=== PATIENT | male | born 1995 | race Caucasian/White ===

== ENCOUNTER 2018-10-07 23:45 | Emergency (ER) | payer BC ==
[~2018-10-07] VITALS: Ht 177.8 cm; Wt 90.7 kg
[~2018-10-07 23:45] MED LIST: UNOBMED
[2018-10-07] MEDS ORDERED: GABAPENTIN600 MG ORAL (23:52)
[2018-10-07] MEDS ORDERED: REMERON15 M1 ORAL (23:52)
--- NOTE | 2018-10-08 | NUR ---
ED Nurse Note: Pt arrived ER [facility]. EMT report someone saw Pt SP seizure episode then call 911. While Pt transfer to the bed, Pt suddenly had seizure attack. Ativan 2mg IVP as ERMD order as soon, suction Pt at bedside. Pt had seizure about 2~3 minutes then stop. Pt awake and HR 128, Pt on 2L N/C and O2 sat 100%. Continue monitor Pt closely.
[2018-10-08] MEDS ORDERED: LORazepam Inj 2mg/ml 1ml ONE (00:08)
--- NOTE | 2018-10-08 00:10 | NUR ---
ED Nurse Note: Blood sample sent to Lab. Found Pt bleed from mouth, assess Pt then found Pt bite his L side tongue. Clean with NS, compress with dressing and bleeding stop. Inform ERMD condition.
[2018-10-08] MEDS ORDERED: LORazepam Inj 2mg/ml 1ml IV ONE ×2 (00:15→01:00)
[2018-10-08 00:20] LABS: BASOPHILS % (AUTO) 1.4 % (0.0-2.0); EOSINOPHILS % (AUTO) 1.3 % (0.0-3.0); HEMATOCRIT 42.5 % (42.0-52.0); HEMOGLOBIN 14.9 G/DL (14.2-18.0); LYMPHOCYTES % (AUTO) 30.4 % (20.0-45.0); MEAN CORPUSCULAR VOLUME 86 FL (80-99); MONOCYTES % (AUTO) 8.9 % (1.0-10.0); PLATELET COUNT 277 K/UL (150-450); RED BLOOD COUNT 4.94 M/UL (4.70-6.10); RED CELL DISTRIBUTION WIDTH 11.2 % (11.6-14.8); WHITE BLOOD COUNT 11.4 K/UL (4.8-10.8)
[2018-10-08 00:30] LABS: ANION GAP 16 mmol/L (5-15); BLOOD UREA NITROGEN 12 mg/dL (7-18); CALCIUM 8.8 MG/DL (8.5-10.1); CARBON DIOXIDE 23 MMOL/L (21-32); CHLORIDE 102 MMOL/L (98-107); CREATININE 1.5 MG/DL (0.55-1.30); POTASSIUM 3.5 MMOL/L (3.5-5.1); SODIUM 141 MMOL/L (136-145)
[2018-10-08 00:34] LABS: ALANINE AMINOTRANSFERASE 171 U/L (12-78); ALBUMIN 3.9 G/DL (3.4-5.0); ALBUMIN/GLOBULIN RATIO 1.1 (1.0-2.7); ALKALINE PHOSPHATASE 91 U/L (46-116); ASPARTATE AMINO TRANSFERASE 82 U/L (15-37); BILIRUBIN,TOTAL 0.3 MG/DL (0.2-1.0)
[2018-10-08 01:11] VITALS: BP 136/70
--- NOTE | 2018-10-08 02:00 | NUR ---
ED Nurse Note: Pt still c/o nausea and vomiting, inform ERMD for action.
[2018-10-08] MEDS ORDERED: Metoclopramide 10mg/2ml Inj IVP ONE (02:15)
[2018-10-08] MEDS ORDERED: Ketorolac 30mg Inj IV ONE (02:15)
[2018-10-08 02:21] VITALS: BP 127/81
--- NOTE | 2018-10-08 03:34 | Emergency Room Report ---
History of Present Illness General Chief Complaint: Seizure Source: Patient Present Illness HPI 23-year-old male presents ED for evaluation. Status post seizure from recuperative care. Witnessed. No head injury. No tongue trauma. No incontinence. Patient awake alert oriented 3 upon arrival. Patient states that he is currently being treated for drug addiction. Denies any drug use today. States he's had seizures twice previously. Is currently not on medication for seizures. Denies headache. Denies fevers or chills. Denies any neck stiffness. No other aggravating relieving factors. Denies any other associated symptoms Allergies: Coded Allergies: No Known Allergies (Unverified , 09/27/18) Patient History Past Medical History: seizures Past Surgical History: none Pertinent Family History: none Social History: Reports: drug use; Denies: smoking, alcohol use Immunizations: UTD Reviewed Nursing Documentation: PMH: Agreed; PSxH: Agreed Nursing Documentation-PMH Past Medical History: No History, Except For Hx Seizures: Yes Review of Systems All Other Systems: negative except mentioned in HPI Physical Exam Vital Signs Date Time Temp Pulse Resp B/P (MAP) Pulse Ox O2 Delivery O2 Flow Rate FiO2 10/07/18 23:48 98.6 128 16 136/70 100 Room Air Sp02 EP Interpretation: reviewed, normal General Appearance: no apparent distress, alert, GCS 15, non-toxic Head: normocephalic, atraumatic Eyes: bilateral eye normal inspection, bilateral eye PERRL ENT: hearing grossly normal, normal pharynx, no angioedema, normal voice Neck: full range of motion, supple/symm/no masses Respiratory: chest non-tender, lungs clear, normal breath sounds, speaking full sentences Cardiovascular #1: regular rate, rhythm, no edema Cardiovascular #2: 2+ carotid (R), 2+ carotid (L), 2+ radial (R), 2+ radial (L) , 2+ dorsalis pedis (R), 2+ dorsalis pedis (L) Gastrointestinal: normal bowel sounds, non tender, soft, non-distended, no guarding, no rebound Rectal: deferred Genitourinary: normal inspection, no CVA tenderness Musculoskeletal: back normal, gait/station normal, normal range of motion, non- tender Neurologic: alert, oriented x3, responsive, motor strength/tone normal, sensory intact, speech normal Psychiatric: judgement/insight normal, memory normal, mood/affect normal, no suicidal/homicidal ideation, anxious Reflexes: 3+ bicep (R), 3+ bicep (L), 3+ tricep (R), 3+ tricep (L), 3+ knee (R) , 3+ knee (L) Skin: normal color, no rash, warm/dry, well hydrated Lymphatic: no adenopathy Medical Decision Making Diagnostic Impression: Primary Impression: Seizure disorder Additional Impression: Drug overdose Qualified Codes: T50.901A - Poisoning by unspecified drugs, medicaments and biological substances, accidental (unintentional), initial encounter ER Course Hospital Course 23-year-old M presents to ED status post seizure. h/o substance abuse Differential diagnosis includes- breakthrough seizure, alcohol abuse, noncompliance with medication Clinical course Patient placed on stretcher. Had one witnessed seizure upon arrival. Given Ativan. Initial history and physical I ordered labs, IV fluids Labs-electrolytes okay, no leukocytosis, hemoglobin/hematocrit stable. Utox + BZs Patient continues to have headache and vomiting. CT down. MRI ordered MRI Brain ok Patient allowed to rest. Awake alert oriented 3. Discussed findings with patient. Gave option for admission. Patient for her to be discharged. Is currently not taking seizure medications. Does not want to start medication at this time until he sees a PMD. States he has a PMD Initially patient was unclear which sober living facility he was residing at. Patient has been in multiple facilities here in [place]. Patient is safe for discharge upon acceptance to his sober living facility. SW will be contacted in AM to assist in placement if patient is unable to locate his sober facility Diagnosis - Seizure disorder, drug overdose stable and discharged to sober living. Followup with PMD. Return to ED if symptoms recur or worsen Labs Test 10/08/18 00:05 10/08/18 04:20 White Blood Count 11.4 K/UL (4.8-10.8) Red Blood Count 4.94 M/UL (4.70-6.10) Hemoglobin 14.9 G/DL (14.2-18.0) Hematocrit 42.5 % (42.0-52.0) Mean Corpuscular Volume 86 FL (80-99) Mean Corpuscular Hemoglobin 30.2 PG (27.0-31.0) Mean Corpuscular Hemoglobin Concent 35.2 G/DL (32.0-36.0) Red Cell Distribution Width 11.2 % (11.6-14.8) Platelet Count 277 K/UL (150-450) Mean Platelet Volume 6.3 FL (6.5-10.1) Neutrophils (%) (Auto) 58.0 % (45.0-75.0) Lymphocytes (%) (Auto) 30.4 % (20.0-45.0) Monocytes (%) (Auto) 8.9 % (1.0-10.0) Eosinophils (%) (Auto) 1.3 % (0.0-3.0) Basophils (%) (Auto) 1.4 % (0.0-2.0) Sodium Level 141 MMOL/L (136-145) Potassium Level 3.5 MMOL/L (3.5-5.1) Chloride Level 102 MMOL/L (98-107) Carbon Dioxide Level 23 MMOL/L (21-32) Anion Gap 16 mmol/L (5-15) Blood Urea Nitrogen 12 mg/dL (7-18) Creatinine 1.5 MG/DL (0.55-1.30) Estimat Glomerular Filtration Rate 57.5 mL/min (>60) Glucose Level 143 MG/DL (74-106) Calcium Level 8.8 MG/DL (8.5-10.1) Total Bilirubin 0.3 MG/DL (0.2-1.0) Aspartate Amino Transf (AST/SGOT) 82 U/L (15-37) Alanine Aminotransferase (ALT/SGPT) 171 U/L (12-78) Alkaline Phosphatase 91 U/L (46-116) Total Protein 7.5 G/DL (6.4-8.2) Albumin 3.9 G/DL (3.4-5.0) Globulin 3.6 g/dL Albumin/Globulin Ratio 1.1 (1.0-2.7) Salicylates Level 1.7 ug/mL (2.8-20) Acetaminophen Level < 2 MCG/ML (10-30) Serum Alcohol < 3 mg/dL Urine Opiates Screen Negative (NEGATIVE) Urine Barbiturates Screen Negative (NEGATIVE) Phencyclidine (PCP) Screen Negative (NEGATIVE) Urine Amphetamines Screen Negative (NEGATIVE) Urine Benzodiazepines Screen Positive (NEGATIVE) Urine Cocaine Screen Negative (NEGATIVE) Urine Marijuana (THC) Screen Negative (NEGATIVE) EKG Diagnostic Results Rate: tachycardiac Rhythm: NSR ST Segments: no acute changes ASA given to the pt in ED: No Rhythm Strip Diag. Results EP Interpretation: yes Rhythm: NSR, no PVC's, no ectopy CT/MRI/US Diagnostic Results CT/MRI/US Diagnostic Results : Imaging Test Ordered: MRI Brain Impression no acute process Last Vital Signs Date Time Temp Pulse Resp B/P (MAP) Pulse Ox O2 Delivery O2 Flow Rate FiO2 10/08/18 02:21 98.5 116 18 127/81 100 Room Air Status: improved Disposition: HOME, SELF-CARE Condition: Stable Referrals: NOT CHOSEN IPA/,REFERRING (PCP) Dale Lawler MD Oct 08, 2018 03:34
--- NOTE | 2018-10-08 03:36 | NUR ---
ED Nurse Note: Pt went to MRI.
--- NOTE | 2018-10-08 04:30 | NUR ---
ED Nurse Note: Urine sample sent to Lab.
--- NOTE | 2018-10-08 06:03 | NUR ---
Pt gave number for sober living [phone] ([place])
--- NOTE | 2018-10-08 06:29 | NUR ---
ED Nurse Note: Pt will needs replacement or looks for social science professor assist in AM.
--- NOTE | 2018-10-08 06:59 | NUR ---
HAND-OFF: Report given to Jen YEBOAH.
[2018-10-08 07:09] VITALS: BP 113/44
--- NOTE | 2018-10-08 07:10 | NUR ---
ED Nurse Note: received pt from EDILIA Garzon. Pt remains stable in [facility]. Per Dr. Malone, pt is ok to eat. Addendum: 10/08/18 at 0714 by [email or web address] ED Nurse Note: received pt from EDILIA Garzon. Pt remains stable in [facility]. Per Dr. Malone, pt is ok to eat. Breakfast is ordered. Waiting for social service director. Will follow up.
--- NOTE | 2018-10-08 07:30 | NUR ---
ED Nurse Note: breakfast tray was provided to patient.
[2018-10-08 08:59] VITALS: BP 102/42
--- NOTE | 2018-10-08 09:15 | NUR ---
ED Nurse Note: pt provided address to [facility] [address]. Spoke with Anil, chief transfer and pumphouse operator, and they said they will provide transportation for the patient. Patient made aware. Notified Dr. Malone that pt has placement.
--- NOTE | 2018-10-08 09:27 | Diagnostic Imaging Report ---
Indication: Seizure. Headache nausea and vomiting Technique: The head was imaged in a 1.5 Nina magnet. Sequences obtained include sagittal and axial T1 FLAIR, axial T2 fast spin echo with fat saturation, axial T2 FLAIR, diffusion and ADC map. Comparison: None Findings: The size, contour, and configuration of the sulci, ventricles, and basal cisterns appear normal. Wilkes-white differentiation is normal. There is no restricted diffusion. There is no mass effect, midline shift, edema, or hemorrhage. There are no abnormal extra-axial or intra-axial fluid collections. The corpus callosum is unremarkable. The brainstem and cerebellum are unremarkable. The sella is unremarkable. Bone marrow signal within the visualized osseous structures appears age appropriate and unremarkable otherwise. Impression: Negative MRI brain without contrast.
[2018-10-08 09:29] VITALS: BP 102/42
--- NOTE | 2018-10-08 09:32 | NUR ---
ED Nurse Note: Pt cleared DC by Dr. Malone. Pt is A/Ox4, VSS, DC instruction and prescriptions given, pt verbalized understanding. IV and ID wristband removed. All belongings given to pt. Pt ambulated out of ER with steady gait.
--- NOTE | 2018-10-10 13:03 | Cardiology Report ---
APPROVED REPORT EKG Measurement Heart [id number] Sinus tachycardia Otherwise normal ECG
== END 2018-10-08 09:35 | disposition home or self-care (01) ==
LOC: EDBD 23:45 → EDUNIT# 23:45 → EMR 10-08 00:19
DX: G40.909 Epilepsy, unspecified, not intractable, without status epilepticus (principal); T50.901A Poisoning by unspecified drugs, medicaments and biological substances, accidental (unintentional), initial encounter
CPT/HCPCS: 36415; 70551; 80053; 80307; 82962; 85025; 93005; 96361; 96374; 96375; 96376; 99284; G0480; J1885; J2405; J2765; 80329

== ENCOUNTER 2019-03-01 15:08 | Inpatient (IN) | payer BC ==
[~2019-03-01] VITALS: Ht 177.8 cm; Wt 95.3 kg
[~2019-03-01 15:08] MED LIST changes: +GABAPENTIN600 MG ORAL; +REMERON15 M1 ORAL
[2019-03-01 15:13] VITALS: BP 103/63
--- NOTE | 2019-03-01 15:15 | NUR ---
ED Nurse Note: Lefty walked into ED c/o 06/09 headache that started earlier this morning, patient states that does have a history of migraines and frequently gets them but today was much worse. at time of triage, patient's blood pressure was 85/53 however at time of putting on a monitor, patients blood pressure was 103/60. patient reports of taking heroin 2 days ago and taking suboxone earlier today.
[2019-03-01] MEDS ORDERED: KEPPRA500 M4 ORAL (15:21)
[2019-03-01] MEDS ORDERED: SUMAtriptan 6mg/0.5ml Inj SUBQ STA (15:38)
--- NOTE | 2019-03-01 15:46 | Emergency Room Report ---
History of Present Illness General Chief Complaint: Headache Source: Patient Present Illness HPI The patient presents with a chief complaint of a headache. He felt okay this morning but then started to get uncontrolled vomiting with a headache that is now 5/10. He has a history of migraines in the past. It feels like his migraine. He does not feel well mainly because of the nausea. Earlier when this began he had chest pain. The chest pain is improved. Seem to be worsened by vomiting. The patient took Suboxone earlier today. The patient did IV heroin 2 days ago. He uses frequently but not daily. He used a half a gram at that time. He is not sure if he is withdrawing somewhat. Usually his withdrawal is controlled by the Suboxone. Patient had chills earlier but no documented fever. He denies vomiting blood. He denies hepatitis C and HIV. The patient states he has access to Narcan. Was evaluated in October for seizure. He felt it was related to withdrawal. No medications were started at that time. 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 Nursing Documentation: PMH: Agreed; PSxH: Agreed Nursing Documentation-PMH Hx Seizures: Yes Review of Systems All Other Systems: negative except mentioned in HPI Physical Exam Vital Signs Date Time Temp Pulse Resp B/P (MAP) Pulse Ox O2 Delivery O2 Flow Rate FiO2 03/01/19 15:13 99.3 130 22 85/55 (65) 100 Room Air Sp02 EP Interpretation: reviewed, normal General Appearance: well appearing, no apparent distress, GCS 15 Head: normocephalic, atraumatic Eyes: bilateral eye normal inspection, bilateral eye PERRL ENT: moist mucus membranes Neck: supple Respiratory: lungs clear, normal breath sounds Cardiovascular #1: tachycardia Cardiovascular #2: 2+ radial (R) Gastrointestinal: normal inspection, normal bowel sounds, non tender, no mass, non-distended Musculoskeletal: back normal, gait/station normal, normal range of motion Neurologic: alert, oriented x3, field test engineer III-XII nml as tested, motor strength/tone normal, DTRs symmetric, sensory intact, speech normal Psychiatric: mood/affect normal Skin: other - Neck loo bilateral Medical Decision Making Diagnostic Impression: Primary Impression: Headache Qualified Codes: R51 - Headache Additional Impressions: Nausea & vomiting Qualified Codes: R11.2 - Nausea with vomiting, unspecified Tachycardia IV drug abuse Left shift Transient hypotension ER Course The patient presents with headache and uncontrolled vomiting. Differential includes migraine, heroin withdrawal, dehydration, viral syndrome and other headache variant, gastroenteritis amongst others. He is tachycardic at this time. Evaluation will be with EKG and labs. The patient will be treated with subcutaneous Imitrex and IV Zofran. He will also receive IV hydration. Complicated case. EKG NSR. Labs with normal white count however there is a left shift with bands present. Improved with tx. Still with nausea and feels dehydrated. Tachycardia persists 18:40. NS bolus, Reglan and Benadryl. Intermittent hypotension. C reactive protein elevated. Concern over SBE. BC ordered, lactic acid and antibiotics ordered. Admit tele. 19:28 Other considerations include withdrawal, sepsis, dehydration. However, with left shift, concern for occult infection. Lactate normal. Discussed with Dr. Farnsworth. Laboratory Tests Test 03/01/19 15:45 03/01/19 16:15 White Blood Count 5.4 K/UL (4.8-10.8) Red Blood Count 4.58 M/UL (4.70-6.10) L Hemoglobin 13.8 G/DL (14.2-18.0) L Hematocrit 40.4 % (42.0-52.0) L Mean Corpuscular Volume 88 FL (80-99) Mean Corpuscular Hemoglobin 30.1 PG (27.0-31.0) Mean Corpuscular Hemoglobin Concent 34.1 G/DL (32.0-36.0) Red Cell Distribution Width 10.9 % (11.6-14.8) L Platelet Count 221 K/UL (150-450) Mean Platelet Volume 6.0 FL (6.5-10.1) L Neutrophils (%) (Auto) % (45.0-75.0) Lymphocytes (%) (Auto) % (20.0-45.0) Monocytes (%) (Auto) % (1.0-10.0) Eosinophils (%) (Auto) % (0.0-3.0) Basophils (%) (Auto) % (0.0-2.0) Differential Total Cells Counted 100 Neutrophils % (Manual) 84 % (45-75) H Lymphocytes % (Manual) 3 % (20-45) L Monocytes % (Manual) 3 % (1-10) Eosinophils % (Manual) 0 % (0-3) Basophils % (Manual) 1 % (0-2) Band Neutrophils 9 % (0-8) H Platelet Estimate Adequate Platelet Morphology Normal Red Blood Cell Morphology Normal Sodium Level 141 MMOL/L (136-145) Potassium Level 3.9 MMOL/L (3.5-5.1) Chloride Level 103 MMOL/L (98-107) Carbon Dioxide Level 25 MMOL/L (21-32) Anion Gap 13 mmol/L (5-15) Blood Urea Nitrogen 16 mg/dL (7-18) Creatinine 1.2 MG/DL (0.55-1.30) Estimate Glomerular Filtration Rate > 60 mL/min (>60) Glucose Level 104 MG/DL (74-106) Calcium Level 9.6 MG/DL (8.5-10.1) Total Bilirubin 1.4 MG/DL (0.2-1.0) H Direct Bilirubin 0.4 MG/DL (0.0-0.3) H Aspartate Amino Transferase (AST) 28 U/L (15-37) Alanine Aminotransferase (ALT) 37 U/L (12-78) Alkaline Phosphatase 81 U/L (46-116) Troponin I 0.000 ng/mL (0.000-0.056) Total Protein 7.4 G/DL (6.4-8.2) Albumin 4.3 G/DL (3.4-5.0) Globulin 3.1 g/dL Albumin/Globulin Ratio 1.4 (1.0-2.7) Salicylates Level 1.5 ug/mL (2.8-20) L Acetaminophen Level < 2 MCG/ML (10-30) L Serum Alcohol < 3 mg/dL Urine Opiates Screen Positive (NEGATIVE) H Urine Barbiturates Screen Negative (NEGATIVE) Phencyclidine (PCP) Screen Negative (NEGATIVE) Urine Amphetamines Screen Negative (NEGATIVE) Urine Benzodiazepines Screen Negative (NEGATIVE) Urine Cocaine Screen Negative (NEGATIVE) Urine Marijuana (THC) Screen Positive (NEGATIVE) H EKG Diagnostic Results Rate: tachycardiac Rhythm: NSR ST Segments: no acute changes Rhythm Strip Diag. Results Rhythm: no PVC's, no ectopy, other - Sinus tachycardia Chest X-Ray Diagnostic Results Chest X-Ray Diagnostic Results : Chest X-Ray Ordered: Yes # of Views/Limited/Complete: 1 View Indication: Other EP Interpretation: Yes Interpretation: no consolidation, no effusion, no pneumothorax Impression: No acute disease Electronically Signed by: Electronically signed by Davidson Palacios MD Last Vital Signs Date Time Temp Pulse Resp B/P (MAP) Pulse Ox O2 Delivery O2 Flow Rate FiO2 03/02/19 00:00 91 03/02/19 00:00 99.0 20 108/62 (77) 96 03/01/19 21:52 Room Air Status: improved Disposition: ADMITTED INPATIENT Condition: Serious Davidson Palacios MD Mar 01, 2019 15:46
[2019-03-01 15:58] LABS: HEMATOCRIT 40.4 % (42.0-52.0); HEMOGLOBIN 13.8 G/DL (14.2-18.0); MEAN CORPUSCULAR VOLUME 88 FL (80-99); PLATELET COUNT 221 K/UL (150-450); RED BLOOD COUNT 4.58 M/UL (4.70-6.10); RED CELL DISTRIBUTION WIDTH 10.9 % (11.6-14.8); WHITE BLOOD COUNT 5.4 K/UL (4.8-10.8)
[2019-03-01 16:10] LABS: ANION GAP 13 mmol/L (5-15); BLOOD UREA NITROGEN 16 mg/dL (7-18); CALCIUM 9.6 MG/DL (8.5-10.1); CARBON DIOXIDE 25 MMOL/L (21-32); CHLORIDE 103 MMOL/L (98-107); CREATININE 1.2 MG/DL (0.55-1.30); POTASSIUM 3.9 MMOL/L (3.5-5.1); SODIUM 141 MMOL/L (136-145)
[2019-03-01 16:22] LABS: ALANINE AMINOTRANSFERASE 37 U/L (12-78); ALBUMIN 4.3 G/DL (3.4-5.0); ALBUMIN/GLOBULIN RATIO 1.4 (1.0-2.7); ALKALINE PHOSPHATASE 81 U/L (46-116); ASPARTATE AMINO TRANSFERASE 28 U/L (15-37); BILIRUBIN,TOTAL 1.4 MG/DL (0.2-1.0)
[2019-03-01 16:23] LABS: BILIRUBIN,DIRECT 0.4 MG/DL (0.0-0.3)
[2019-03-01 17:13] VITALS: BP 89/57
[2019-03-01] MEDS ORDERED: Metoclopramide 10mg/2ml Inj IVP ONE (18:45)
[2019-03-01] MEDS ORDERED: DiphenhydrAMINE 50mg/ml Inj IVP ONE (18:45)
[2019-03-01 19:13] VITALS: BP 116/84
--- NOTE | 2019-03-01 19:26 | NUR ---
Brooke lugo in EDM - 03/01/19 at 1926 by [email or web address] ED Nurse Note: x-ray at bedside.
--- NOTE | 2019-03-01 20:18 | NUR ---
ED Nurse Note: x-ray at bedside.
[2019-03-01] MEDS ORDERED: Piperacillin/Tazobactam 3.375 GM in NS 110 ML IVPB ONE (21:15)
[2019-03-01] MEDS ORDERED: Vancomycin 1.5 GM in NS 275 ML IVPB ONE (21:15)
--- NOTE | 2019-03-01 21:19 | NUR ---
HAND-OFF: Report given to Johanna Canas RN. first IV ATB is running. pt will be transferred after 2nd IV ATB initiated.
--- NOTE | 2019-03-01 21:42 | NUR ---
ED Nurse Note: report given to EDILIA Crystal from Tele.
--- NOTE | 2019-03-01 21:52 | NUR ---
ED Nurse Note: pt transferred to tele floor, all belongings sent w/ pt w/ completed list, iv intact and patent, 2nd antibitic running, pt vss, resp even and unlabored on RA, pt sinus tach on overnight cashier, care endorsed to EDILIA Griffin.
--- NOTE | 2019-03-01 21:55 | NUR ---
NURSE NOTES: Pt received from ED in stable condition. Belongings list reviewed and signed, with belongings at bedside. iv intact and patent, 2nd antibiotic running, pt vss, resp even and unlabored on RA, pt sinus tach on air sampling and monitoring. will continue to monitor pt.
[2019-03-02] VITALS: BP 108/62
[2019-03-02] MEDS ORDERED: Acetaminophen 500mg (ES) tab ORAL PRN (00:15)
[2019-03-02 04:00] VITALS: BP 112/68
--- NOTE | 2019-03-02 07:10 | NUR ---
HAND-OFF: Report given to EDILIA Severino.
--- NOTE | 2019-03-02 07:12 | NUR ---
NURSE NOTES: Received patient from Alonso YEBOAH in bed eating breakfast. Denies having headache at this time. No s/s of vomiting noted. Pt is in stable condition. IV intact and patent. Patient is on RA. Will continue with the plan of care.
[2019-03-02 07:16] LABS: BASOPHILS % (AUTO) 0.7 % (0.0-2.0); EOSINOPHILS % (AUTO) 0.4 % (0.0-3.0); HEMATOCRIT 35.1 % (42.0-52.0); LYMPHOCYTES % (AUTO) 8.5 % (20.0-45.0); MEAN CORPUSCULAR VOLUME 89 FL (80-99); MONOCYTES % (AUTO) 7.3 % (1.0-10.0); NEUTROPHILS % (AUTO) 83.2 % (45.0-75.0); PLATELET COUNT 172 K/UL (150-450); RED BLOOD COUNT 3.94 M/UL (4.70-6.10); RED CELL DISTRIBUTION WIDTH 11.6 % (11.6-14.8); WHITE BLOOD COUNT 11.9 K/UL (4.8-10.8)
[2019-03-02 07:52] LABS: ALANINE AMINOTRANSFERASE 27 U/L (12-78); ALBUMIN 3.3 G/DL (3.4-5.0); ALBUMIN/GLOBULIN RATIO 1.2 (1.0-2.7); ALKALINE PHOSPHATASE 56 U/L (46-116); ANION GAP 10 mmol/L (5-15); ASPARTATE AMINO TRANSFERASE 24 U/L (15-37); BILIRUBIN,TOTAL 0.8 MG/DL (0.2-1.0); BLOOD UREA NITROGEN 13 mg/dL (7-18); CALCIUM 8.7 MG/DL (8.5-10.1); CARBON DIOXIDE 24 MMOL/L (21-32); CHLORIDE 109 MMOL/L (98-107); CREATININE 0.9 MG/DL (0.55-1.30); POTASSIUM 3.7 MMOL/L (3.5-5.1); SODIUM 143 MMOL/L (136-145)
[2019-03-02 08:00] VITALS: BP 127/82
--- NOTE | 2019-03-02 10:33 | GI Initial Consult Note ---
History of Present Illness General Date patient seen: Mar 02, 2019 Time patient seen: 10:30 Reason for Hospitalization: Headache Referring physician: CHAPARRITA ROBERTS Reason for Consultation: VOMITING Present Illness HPI The patient presents with a chief complaint of a headache. He felt okay this morning but then started to get uncontrolled vomiting with a headache that is now 5/10. He has a history of migraines in the past. It feels like his migraine. He does not feel well mainly because of the nausea. Earlier when this began he had chest pain. The chest pain is improved. Seem to be worsened by vomiting. The patient took Suboxone earlier today. The patient did IV heroin 2 days ago. He uses frequently but not daily. He used a half a gram at that time. He is not sure if he is withdrawing somewhat. Usually his withdrawal is controlled by the Suboxone. Patient had chills earlier but no documented fever. He denies vomiting blood. He denies hepatitis C and HIV. The patient states he has access to Narcan. Was evaluated in October for seizure. He felt it was related to withdrawal. No medications were started at that time. GI consulted for nausea vomiting. Patient seen, awake alert and oriented x4 no apparent distress ambulatory. The patient denies any nausea vomiting at this time states it has resolved. The patient denied any coffee grounds or hematemesis. The patient denies any constipation or diarrhea. The patient states that his symptoms has resolved. The patient is tolerated diet states he is ready to be discharged. Labs reviewed noted with mild anemia and mild leukocytosis. Patient is positive for marijuana. No history of endoscopic or colonoscopy. Home Meds Reported Medications Levetiracetam (KEPPRA) 500 Mg Tablet, ORAL EVERY 12 HOURS, #60 TAB 0 Refills 03/01/19 Mirtazapine (REMERON) 15 Mg Tab.rapdis, 15 MG ORAL BEDTIME, TAB 10/07/18 Gabapentin* (GABAPENTIN*) 600 Mg Tablet, 600 MG ORAL THREE TIMES A DAY, TAB 10/07/18 Med list reviewed/reconciled: Yes Allergies: Coded Allergies: No Known Allergies (Unverified , 09/27/18) Patient History History Provided By: Patient, Medical Record [facility] Narrative Past Medical History: see triage record Social History: Reports: smoking - Vape, drug use - Heroin; Denies: alcohol use Social History Narrative [employer]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 Reviewed Nursing Documentation: PMH: Agreed; PSxH: Agreed Nursing Documentation-PMH Hx Seizures: Yes Past Surgical History: none Social History: Reports: drug use Review of Systems All Other Systems: negative except mentioned in HPI Physical Exam Vital Signs Date Time Temp Pulse Resp B/P (MAP) Pulse Ox O2 Delivery O2 Flow Rate FiO2 03/01/19 15:13 99.3 130 22 85/55 (65) 100 Room Air Sp02 EP Interpretation: reviewed, normal Labs Laboratory Tests Test 03/01/19 15:45 03/01/19 16:15 03/01/19 19:00 03/02/19 06:43 White Blood Count 5.4 K/UL (4.8-10.8) 11.9 K/UL (4.8-10.8) #H Red Blood Count 4.58 M/UL (4.70-6.10) L 3.94 M/UL (4.70-6.10) L Hemoglobin 13.8 G/DL (14.2-18.0) L 12.0 G/DL (14.2-18.0) L Hematocrit 40.4 % (42.0-52.0) L 35.1 % (42.0-52.0) L Mean Corpuscular Volume 88 FL (80-99) 89 FL (80-99) Mean Corpuscular Hemoglobin 30.1 PG (27.0-31.0) 30.4 PG (27.0-31.0) Mean Corpuscular Hemoglobin Concent 34.1 G/DL (32.0-36.0) 34.2 G/DL (32.0-36.0) Red Cell Distribution Width 10.9 % (11.6-14.8) L 11.6 % (11.6-14.8) Platelet Count 221 K/UL (150-450) 172 K/UL (150-450) Mean Platelet Volume 6.0 FL (6.5-10.1) L 6.4 FL (6.5-10.1) L Neutrophils (%) (Auto) % (45.0-75.0) 83.2 % (45.0-75.0) H Lymphocytes (%) (Auto) % (20.0-45.0) 8.5 % (20.0-45.0) L Monocytes (%) (Auto) % (1.0-10.0) 7.3 % (1.0-10.0) Eosinophils (%) (Auto) % (0.0-3.0) 0.4 % (0.0-3.0) Basophils (%) (Auto) % (0.0-2.0) 0.7 % (0.0-2.0) Differential Total Cells Counted 100 Neutrophils % (Manual) 84 % (45-75) H Lymphocytes % (Manual) 3 % (20-45) L Monocytes % (Manual) 3 % (1-10) Eosinophils % (Manual) 0 % (0-3) Basophils % (Manual) 1 % (0-2) Band Neutrophils 9 % (0-8) H Platelet Estimate Adequate Platelet Morphology Normal Red Blood Cell Morphology Normal Erythrocyte Sedimentation Rate 33 MM/HR (0-15) H Sodium Level 141 MMOL/L (136-145) 143 MMOL/L (136-145) Potassium Level 3.9 MMOL/L (3.5-5.1) 3.7 MMOL/L (3.5-5.1) Chloride Level 103 MMOL/L (98-107) 109 MMOL/L (98-107) H Carbon Dioxide Level 25 MMOL/L (21-32) 24 MMOL/L (21-32) Anion Gap 13 mmol/L (5-15) 10 mmol/L (5-15) Blood Urea Nitrogen 16 mg/dL (7-18) 13 mg/dL (7-18) Creatinine 1.2 MG/DL (0.55-1.30) 0.9 MG/DL (0.55-1.30) Estimat Glomerular Filtration Rate > 60 mL/min (>60) > 60 mL/min (>60) Glucose Level 104 MG/DL (74-106) 89 MG/DL (74-106) Calcium Level 9.6 MG/DL (8.5-10.1) 8.7 MG/DL (8.5-10.1) Total Bilirubin 1.4 MG/DL (0.2-1.0) H 0.8 MG/DL (0.2-1.0) Direct Bilirubin 0.4 MG/DL (0.0-0.3) H Aspartate Amino Transf (AST/SGOT) 28 U/L (15-37) 24 U/L (15-37) Alanine Aminotransferase (ALT/SGPT) 37 U/L (12-78) 27 U/L (12-78) Alkaline Phosphatase 81 U/L (46-116) 56 U/L (46-116) Troponin I 0.000 ng/mL (0.000-0.056) C-Reactive Protein, Quantitative 2.4 mg/dL (0.00-0.90) H Total Protein 7.4 G/DL (6.4-8.2) 6.1 G/DL (6.4-8.2) L Albumin 4.3 G/DL (3.4-5.0) 3.3 G/DL (3.4-5.0) L Globulin 3.1 g/dL 2.8 g/dL Albumin/Globulin Ratio 1.4 (1.0-2.7) 1.2 (1.0-2.7) Salicylates Level 1.5 ug/mL (2.8-20) L Acetaminophen Level < 2 MCG/ML (10-30) L Serum Alcohol < 3 mg/dL Urine Opiates Screen Positive (NEGATIVE) H Urine Barbiturates Screen Negative (NEGATIVE) Phencyclidine (PCP) Screen Negative (NEGATIVE) Urine Amphetamines Screen Negative (NEGATIVE) Urine Benzodiazepines Screen Negative (NEGATIVE) Urine Cocaine Screen Negative (NEGATIVE) Urine Marijuana (THC) Screen Positive (NEGATIVE) H Lactic Acid Level 1.10 mmol/L (0.4-2.0) General Appearance: well appearing, no apparent distress, alert Head: normocephalic EENT: PERRL/EOMI, normal ENT inspection Neck: supple Respiratory: normal breath sounds, no respiratory distress Cardiovascular: normal rate Gastrointestinal: normal inspection, non tender, soft, normal bowel sounds, non -distended Rectal: deferred Genitourinary: deferred Musculoskeletal: normal inspection, back normal Neurologic: normal inspection, alert, oriented x3, responsive Psychiatric: normal inspection, judgement/insight normal, memory normal Skin: normal inspection, normal color, no rash, warm/dry, palpation normal, well hydrated Lymphatic: normal inspection, no adenopathy Current Medications Current Medications Medications (Trade) Dose Ordered Sig/Vibha Route PRN Reason Start Time Stop Time Status Last Admin Dose Admin Acetaminophen (Tylenol) 500 mg Q4H PRN ORAL Mild Pain/Temp > 100.5 03/02/19 00:15 04/01/19 00:14 GI: Plan Problems: (1) Nausea & vomiting (2) IV drug abuse (3) Drug overdose (4) Dehydration Plan No plans for GI procedures at this time, patient okay for discharge Symptomatic treatment Cardiac diet, patient is tolerating Zofran as needed H2-rafal Electrolyte correction P.o. hydration Follow labs Discussed with Dr. To. Thank you for this patient referral, we will follow. The patient was seen and examined at bedside and all new and available data was reviewed in the patients chart. I agree with the above findings, impression and plan. (Patient seen earlier today. Signature stamp does not reflect patient encounter time.). - MD Jennifer MataBanner Boswell Medical CenterAlena WATSON Mar 02, 2019 10:33
--- NOTE | 2019-03-02 11:48 | NUR ---
CASE MANAGEMENT: INITIAL REVIEW 24 YO M PRESENTED TO OUR ED FROM HOME CC: ANTOINE PMHx: MIGRAINE. IVDA (HEROINE). SI:SUBACUTE BACTERIAL ENDOCARDITIS. T 99.3 HR 130 RR 22 B/P 85/55 SATS 100% ON RA TBILI 1.4 DBILI 0.4 U TOX(+THC. OPIATES) IS: IMITREX PO X1 NS BOLUS X2 ZOFRAN IV X1 PEPCID IV X1 REGLAN IV X1 BENADRYL IV X1 PATIENT ADMITTED TO TELE 03/01/2019 @ 1938 DCP: PATIENT TO BE DISCHARGED TO HOME ONCE MEDICALLY CLEARED. PLAN OF CARE: 2D ECHO HIV SCREEN Addendum: 03/02/19 at 1206 by Sarah Euceda INTERQUAL MET
[2019-03-02 12:00] VITALS: BP 111/68
--- NOTE | 2019-03-02 12:40 | Cardiac Electrophysiology PN ---
Subjective Subjective [id number] Objective Last 24 Hour Vital Signs Date Time Temp Pulse Resp B/P (MAP) Pulse Ox O2 Delivery O2 Flow Rate FiO2 03/02/19 09:00 Room Air 03/02/19 08:00 92 03/02/19 08:00 98.4 98 18 127/82 (97) 97 03/02/19 04:00 92 03/02/19 04:00 98.7 93 20 112/68 (83) 99 03/02/19 00:00 91 03/02/19 00:00 99.0 106 20 108/62 (77) 96 03/01/19 22:19 100 03/01/19 21:52 99.4 110 18 104/76 100 Room Air 03/01/19 21:44 Room Air 03/01/19 19:13 99.4 111 22 116/84 100 Room Air 03/01/19 17:13 99.0 112 22 89/57 100 Room Air 03/01/19 15:13 99.3 115 22 103/63 100 Room Air 03/01/19 15:13 99.3 130 22 85/55 (65) 100 Room Air Intake and Output 03/01/19 03/02/19 19:00 07:00 Intake Total 1000 ml 1600 ml Balance 1000 ml 1600 ml IV Total 1000 ml 1600 ml # Voids 2 Laboratory Tests Test 03/01/19 15:45 03/01/19 16:15 03/01/19 19:00 03/02/19 06:43 White Blood Count 5.4 K/UL (4.8-10.8) 11.9 K/UL (4.8-10.8) #H Red Blood Count 4.58 M/UL (4.70-6.10) L 3.94 M/UL (4.70-6.10) L Hemoglobin 13.8 G/DL (14.2-18.0) L 12.0 G/DL (14.2-18.0) L Hematocrit 40.4 % (42.0-52.0) L 35.1 % (42.0-52.0) L Mean Corpuscular Volume 88 FL (80-99) 89 FL (80-99) Mean Corpuscular Hemoglobin 30.1 PG (27.0-31.0) 30.4 PG (27.0-31.0) Mean Corpuscular Hemoglobin Concent 34.1 G/DL (32.0-36.0) 34.2 G/DL (32.0-36.0) Red Cell Distribution Width 10.9 % (11.6-14.8) L 11.6 % (11.6-14.8) Platelet Count 221 K/UL (150-450) 172 K/UL (150-450) Mean Platelet Volume 6.0 FL (6.5-10.1) L 6.4 FL (6.5-10.1) L Neutrophils (%) (Auto) % (45.0-75.0) 83.2 % (45.0-75.0) H Lymphocytes (%) (Auto) % (20.0-45.0) 8.5 % (20.0-45.0) L Monocytes (%) (Auto) % (1.0-10.0) 7.3 % (1.0-10.0) Eosinophils (%) (Auto) % (0.0-3.0) 0.4 % (0.0-3.0) Basophils (%) (Auto) % (0.0-2.0) 0.7 % (0.0-2.0) Differential Total Cells Counted 100 Neutrophils % (Manual) 84 % (45-75) H Lymphocytes % (Manual) 3 % (20-45) L Monocytes % (Manual) 3 % (1-10) Eosinophils % (Manual) 0 % (0-3) Basophils % (Manual) 1 % (0-2) Band Neutrophils 9 % (0-8) H Platelet Estimate Adequate Platelet Morphology Normal Red Blood Cell Morphology Normal Erythrocyte Sedimentation Rate 33 MM/HR (0-15) H Sodium Level 141 MMOL/L (136-145) 143 MMOL/L (136-145) Potassium Level 3.9 MMOL/L (3.5-5.1) 3.7 MMOL/L (3.5-5.1) Chloride Level 103 MMOL/L (98-107) 109 MMOL/L (98-107) H Carbon Dioxide Level 25 MMOL/L (21-32) 24 MMOL/L (21-32) Anion Gap 13 mmol/L (5-15) 10 mmol/L (5-15) Blood Urea Nitrogen 16 mg/dL (7-18) 13 mg/dL (7-18) Creatinine 1.2 MG/DL (0.55-1.30) 0.9 MG/DL (0.55-1.30) Estimat Glomerular Filtration Rate > 60 mL/min (>60) > 60 mL/min (>60) Glucose Level 104 MG/DL (74-106) 89 MG/DL (74-106) Calcium Level 9.6 MG/DL (8.5-10.1) 8.7 MG/DL (8.5-10.1) Total Bilirubin 1.4 MG/DL (0.2-1.0) H 0.8 MG/DL (0.2-1.0) Direct Bilirubin 0.4 MG/DL (0.0-0.3) H Aspartate Amino Transf (AST/SGOT) 28 U/L (15-37) 24 U/L (15-37) Alanine Aminotransferase (ALT/SGPT) 37 U/L (12-78) 27 U/L (12-78) Alkaline Phosphatase 81 U/L (46-116) 56 U/L (46-116) Troponin I 0.000 ng/mL (0.000-0.056) C-Reactive Protein, Quantitative 2.4 mg/dL (0.00-0.90) H Total Protein 7.4 G/DL (6.4-8.2) 6.1 G/DL (6.4-8.2) L Albumin 4.3 G/DL (3.4-5.0) 3.3 G/DL (3.4-5.0) L Globulin 3.1 g/dL 2.8 g/dL Albumin/Globulin Ratio 1.4 (1.0-2.7) 1.2 (1.0-2.7) Salicylates Level 1.5 ug/mL (2.8-20) L Acetaminophen Level < 2 MCG/ML (10-30) L Serum Alcohol < 3 mg/dL Urine Opiates Screen Positive (NEGATIVE) H Urine Barbiturates Screen Negative (NEGATIVE) Phencyclidine (PCP) Screen Negative (NEGATIVE) Urine Amphetamines Screen Negative (NEGATIVE) Urine Benzodiazepines Screen Negative (NEGATIVE) Urine Cocaine Screen Negative (NEGATIVE) Urine Marijuana (THC) Screen Positive (NEGATIVE) H Lactic Acid Level 1.10 mmol/L (0.4-2.0) Toluie,Roberto MD Mar 02, 2019 12:40
--- NOTE | 2019-03-02 12:43 | Diagnostic Imaging Report ---
Indication: Dyspnea Comparison: None A single view chest radiograph was obtained. Findings: Cardiomediastinal appearance is within normal limits for age. The lungs are clear. Pulmonary vascularity is appropriate. The diaphragmatic contour is smooth and costophrenic angles are sharp. No pleural effusions are identified. The bones are unremarkable. Impression: No acute findings
--- NOTE | 2019-03-02 14:25 | Cardiology Report ---
APPROVED REPORT EXAM: Two-dimensional and M-mode echocardiogram with Doppler and color Doppler. INDICATION Endocarditis M-Mode DIMENSIONS IVSd1.0 (0.7-1.1cm)Left Atrium (MM)3.4 (1.6-4.0cm) LVDd4.9 (3.5-5.6cm)Aortic Root2.5 (2.0-3.7cm) PWd0.8 (0.7-1.1cm)Aortic Cusp Exc.1.8 (1.5-2.0cm) LVDs3.1 (2.5-4.0cm) PWs1.3 cm Normal left ventricular chamber size, systolic function and wall motion. Left ventricular ejection fraction estimated to be 55 %. No evidence of left ventricular hypertrophy. No evidence of pericardial effusion. All other cardiac chamber sizes are within normal limits. Mild focal aortic valve sclerosis with adequate cusp excursion. Mildly thickened mitral valve leaflets with normal excursion. Mild mitral annulus and aortic root calcification. IVC at normal size with physiologic collapse. A color flow and spectral Doppler study was performed and revealed: Trace mitral regurgitation. Mitral inflow indicates normal left ventricular diastolic function. Trace tricuspid regurgitation. Tricuspid systolic velocities suggests peak right ventricular systolic pressure of 16 mmHg
--- NOTE | 2019-03-02 15:35 | Cardiology Report ---
APPROVED REPORT EKG Measurement Heart [id number] Sinus tachycardia RSR' or QR pattern in V1 suggests right ventricular conduction delay Borderline ECG
[2019-03-02 16:00] VITALS: BP 124/74
--- NOTE | 2019-03-02 16:30 | Consultation ---
DATE OF CONSULTATION: 03/02/2019 INFECTIOUS DISEASE CONSULT CONSULTING PHYSICIAN: Iván Yan M.D. PRIMARY ATTENDING: Hi Farnsworth M.D. REASON FOR CONSULT: Subacute bacterial endocarditis. HISTORY OF PRESENT ILLNESS: This is a 24-year-old white male admitted last night complaining of headache, nausea, vomiting. The patient has history heroin abuse and the last use was 2 days before admission. He was not sure that the symptoms may have been related to withdrawal. Has tachycardia of 130 in the ER. Today, has borderline leukocytosis. Has elevated ESR and CRP. PAST MEDICAL HISTORY: Significant for drug abuse. He had a visit to the ER with seizure in October 2018. ALLERGIES: No known drug allergies. MEDICATIONS: Tylenol. Got a dose of vancomycin and Zosyn in ER. SOCIAL HISTORY: Single. Has no child. 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 Uses IV heroin. Smoking [place]. Uses marijuana. REVIEW OF SYSTEMS: Currently headache. Nausea, vomiting is better. No fever. No chills. No chest pain. No problem passing urine. PHYSICAL EXAMINATION: VITAL SIGNS: Temperature 98.4, pulse 98, blood pressure is 127/82. GENERAL APPEARANCE: No acute distress. Well developed. HEAD AND NECK: No oral lesion. HEART: Normal rate. LUNGS: Clear. ABDOMEN: Soft, nontender. EXTREMITIES: Has no edema. SKIN: Intact. NEUROLOGIC: Awake, alert, oriented x3. No focal signs. LABORATORY DATA: WBC 11.9, hemoglobin 12, hematocrit 35.1, platelets 172. Sodium 140, potassium 3.7, chloride 109, bicarbonate 24, BUN 13, creatinine 0.9, glucose 89. Bilirubin was elevated at the time of admission 1.4, currently 0.8. Urine toxicology was positive for opiates and marijuana. IMPRESSION: Leukocytosis. Has nausea, vomiting, headache, likely secondary to opiate withdrawal. The patient has polysubstance abuse including marijuana, opiate. He is on Suboxone at home. We will try to rule out subacute bacterial endocarditis, but the possibility is low. RECOMMENDATION: HIV test. We will order a 2D echocardiogram. Observe off antibiotic for now. At the end of my exam, I thank Dr. Farnsworth for involving me in the care of this patient. Iván Yan M.D. DR: EDMAR JOB#: [id number] CC: CAESAR
--- NOTE | 2019-03-02 17:27 | NUR ---
NURSE NOTES: Patient decided to leave the hospital against medical advice, encourage patient to complete his treatment. Patient stated "I came for headache and I don't have any headache anymore." I explained the risk and benefits of leaving against medical advice. Patient still insisist on leaving. Dr. Farnsworth notified and spoke to patient on the telephone that he is on his way. Patient agreed to stay till MD gets here. Dr Farnsworth came in and talk to patien and left. However, patient continue to insist on leaving. Charge nurse was aware. Patient stated that he is going back to his sober living and that he is able to get there on his own. He did not provide the phone number of the sober leaving. Risk and benefits of leaving against medical advice was further explained to the patient three more times but to no avail. Patient signed the AMA form and signed the patient's belonging form.
--- NOTE | 2019-03-02 19:45 | Consultation ---
DATE OF CONSULTATION: 03/02/2019 NOTE: "POOR AUDIO QUALITY" CARDIOLOGY CONSULTATION CONSULTING PHYSICIAN: Roberto Lozano M.D. REFERRING PHYSICIAN: Hi Farnsworth M.D. REASON FOR CONSULTATION: Rule out endocarditis. HISTORY OF PRESENT ILLNESS: The patient is a 24-year-old gentleman with IV heroin use, who presented to the emergency room complaining of headache that has started to get uncontrolled and vomiting. The patient has history of migraine in the past. The patient took Suboxone earlier on the day of admission. He did IV heroin two days prior to the admission. He uses frequently, but not daily. He was not sure whether he has been drying and usually these were always controlled by Suboxone. The patient was also fever for seizures, although it was felt probably due to heroin withdrawal. REVIEW OF SYSTEMS: Negative other than what was mentioned in the history of present illness. PAST MEDICAL HISTORY: As mentioned above. FAMILY HISTORY: Noncontributory. SOCIAL HISTORY: He uses heroin intravenously. PHYSICAL EXAMINATION: VITAL SIGNS: Blood pressure was 84/55 with heart rate of 130 on admission. Currently, heart rate is 100 and blood pressure 127/82. HEAD AND NECK: Shows no JVD. LUNGS: Clear. CARDIOVASCULAR: Shows regular S1 and S2 with no gallop or murmur. ABDOMEN: Soft. EXTREMITIES: No pitting edema. LABORATORY AND DIAGNOSTIC DATA: His EKG showed sinus tachycardia with no acute ST-T wave abnormality and rate of 122. Laboratories show white count of 11.9, hemoglobin 12, hematocrit 35, and platelet count is 172,000. ESR 33. Sodium 142, potassium 3.7, BUN of 13, creatinine 0.9. Troponin is negative. CRP is 2.4. Urine-tox is positive for marijuana and opiate. ASSESSMENT AND PLAN: 1. Elevated white count in a patient with IV drug use, rule out endocarditis. We will get an echocardiogram to evaluate for ejection fraction and wall motion abnormality and rule out any vegetation. 2. Tachycardia. It is likely due to withdrawal, with sinus tachycardia. No evidence of atrial fibrillation. 3. Headache and migraine. Thank you very much, Dr. Farnsworth, for allowing me to participate in the care of this patient. Please do not hesitate to contact me for any questions regarding my evaluation. Roberto Lozano M.D. DR: Charles JOB#: [id number] CC:
--- NOTE | 2019-03-03 03:30 | History and Physical Report ---
DATE OF ADMISSION: 03/01/2019 HISTORY OF PRESENT ILLNESS: The patient is admitted. The ER doctor wanted to rule out spontaneous bacterial endocarditis, elevated LFTs as well. The patient has a history of IV drug abuse. Had some chills. Also, has a history of smoking as well. Also has currently migraine headache. Denies nausea, vomiting, diarrhea. Denies shortness of breath. Denies cough. Denies chills. PAST MEDICAL HISTORY: Significant for headaches, history of drug abuse. MEDICATIONS: None. ALLERGIES: None. SURGERIES: None. FAMILY HISTORY: Noncontributory. SOCIAL HISTORY: Has a history of smoking, history of drug abuse. Denies alcohol use. REVIEW OF SYSTEMS: HEENT: Denies headaches. RESPIRATORY: Denies shortness of breath. Denies cough. CARDIOVASCULAR: Denies chest pain. GASTROINTESTINAL: Denies nausea, vomiting, diarrhea. EXTREMITIES: Denies any pain. CENTRAL NERVOUS SYSTEM: Denies any change in vision or speech pattern. Does have a headache. PHYSICAL EXAMINATION: VITAL SIGNS: Temperature 97.2, pulse 78, blood pressure 130/70. HEENT: PERRLA. NECK: Supple. No lymphadenopathy. CHEST: Clear to auscultation. GASTROINTESTINAL: Soft, nontender, nondistended. No organomegaly. EXTREMITIES: No edema. Moves all four extremities. NEUROLOGIC: Sensory is intact to touch. Reflexes equal on both sides. Moves all four extremities. LABORATORY DATA: Essentially normal. ASSESSMENT AND PLAN: Sepsis. The ER doctor wanted to rule out spontaneous bacterial endocarditis. That is why the patient was admitted. The patient also has a headache. I have asked Dr. Ng, Dr. Perera, Dr. To, Dr. Iván Yan to see the patient. I saw the patient. The patient is eager to go home today. I told him that he needs an ID consult before discharge unless he wants to . I let him know about all those options. Rule out sepsis. Rule out bacterial endocarditis, headache. I have consulted Dr. Iván Yan as well as Dr. Lozano, Dr. Ng, and Dr. To. Hi Farnsworth M.D. DR: ADDISON JOB#: [id number] CC:
--- NOTE | 2019-03-03 07:24 | Discharge Summary ---
Discharge Summary Discharge Summary _ DATE OF ADMISSION: 03/01/2019 DATE OF DISCHARGE: 03/02/2019 BRIEF HOSPITAL COURSE: Patient is a 24-year-old male, who presented to ED with chief complaint of headache. He complained of uncontrolled vomiting with headache. He has history of migraine headaches. He had IV heroine drug use 2 days prior. He admitted to using it frequently but not daily. Patient took Suboxone. On evaluation at the ED, blood pressure was 85/55. Heart rate was elevated to 130. He was afebrile and was saturating 100% on room air. Blood work did not show any leukocytosis, however with left shift. Electrolytes were normal. LFTs normal. Urine toxicology screen was positive for opiates and marijuana. Serum alcohol, salicylates and acetaminophen negative. EKG done was in sinus tachycardia with no acute changes. Chest x-ray did not show any acute findings. He was given IV hydration. He was given symptomatic treatment with Zofran and subcutaneous Imitrex. He continued to have intermittent hypotension. CRP was elevated. There was concern over possible endocarditis. He was then admitted for evaluation headache, nausea vomiting with tachycardia in light of recent IV drug use. Patient was admitted to telemetry. Street Supervisor was consulted. EKG showed sinus tachycardia with no acute ST or T wave abnormalities. Tachycardia was attributed to be likely due to withdrawal symptoms. Echocardiogram was ordered. There was no evidence of atrial fibrillation. ID was consulted. Patient was kept off antibiotics pending culture results. GI was consulted for evaluation of nausea and vomiting. Patient symptoms eventually resolved. He was tolerating diet. Full treatment was not carried out as patient left against medical advise. FINAL DIAGNOSES: Elevated white count with IV drug use, possible endocarditis Tachycardia, likely due to withdrawal Headache and migraine DISPOSITION: Patient left AMA. I have been assigned to complete a discharge summary on this account, I was not involved with the patient's management.--SHIRLEY August Jacqueline Robles NP Mar 03, 2019 07:24
--- NOTE | 2019-03-06 11:57 | NUR ---
CASE MANAGEMENT: CM review and clinical information (face sheet/ ER MD notes/ H&P) faxed to [facility] @ [phone]
== END 2019-03-02 16:47 | disposition left against medical advice (07) | DRG 307 ==
LOC: EMR 18:49 → 2E 19:38 → EDBEDREQ 20:48 → 2E 03-02 03:18
DX: I38 Endocarditis, valve unspecified (principal); F19.239 Other psychoactive substance dependence with withdrawal, unspecified; R00.0 Tachycardia, unspecified; G43.909 Migraine, unspecified, not intractable, without status migrainosus; E86.0 Dehydration
CPT/HCPCS: 36415; 71045; 80053; 80307; 80329; 82248; 83605; 84484; 85007; 85025; 85651; 86140; 87040; 93005; 93306; 96361; 96365; 96368; 96372; 96375; 99285; J2405; J2765